=== PATIENT | male | born 1960 | race Caucasian/White ===

== ENCOUNTER 2020-01-27 18:25 | Inpatient (IN) ==
[2020-01-27 19:27] LABS: Immature Granulocytes % 0.4 % (0-4)
[2020-01-27 19:29] LABS: Basophils % 0.1 %; Hematocrit 44.5 % (37.5-50.1); Hemoglobin 14.1 g/dL (12.9-16.9); Immature Platelets 1.3 % (1.1-6.1); Lymphocytes # 0.6 K/mcL (0.6-4.6); Lymphocytes % 7.5 %; Mean Corpuscular HGB Conc 31.7 g/dL (31.6-35.5); Mean Corpuscular Hemoglobin 29.3 pg (28.0-33.3); Mean Corpuscular Volume 92.3 fL (83.0-100.0); Mean Platelet Volume 10.6 fL (9.4-12.4); Monocytes # 0.7 K/mcL (0.0-1.3); Neutrophils # 6.7 K/mcL (1.6-8.9); Platelet Count 147 K/mcL (140-400); Red Blood Count 4.82 M/mcL (4.19-5.50); Red Cell Distribution Width 14.9 % (11.5-14.5); White Blood Count 8.1 K/mcL (4.3-11.1)
[2020-01-27 20:00] LABS: Alanine Aminotransferase < 3 Units/L (7-52); Albumin 4.1 g/dL (3.5-5.7); Albumin/Globulin Ratio 1.5 (1.1-2.2); Alkaline Phosphatase 48 Units/L (34-104); Aspartate Amino Transferase 8 Units/L (13-39); BUN/Creatinine Ratio 14 (6-26); Bilirubin,Total 0.9 mg/dL (0.3-1.0); Blood Urea Nitrogen 19 mg/dL (8-23); Calcium 9.2 mg/dL (8.6-10.3); Carbon Dioxide 22 mEq/L (23-29); Chloride 104 mEq/L (98-107); Globulin 2.8 g/dL (2.4-3.5); Glucose 138 mg/dL (70-105); Osmolality,Calculated 288 (280-300); Sodium 137 mEq/L (136-145); Total Protein 6.9 g/dL (6.4-8.9); Troponin I < 0.03 ng/mL (< 0.04); eGFR For African Americans > 60 (> 60); eGFR For Non-African Americans 52 (> 60)
[2020-01-27 20:21] LABS: Bilirubin,Urine Negative (Negative); Blood,Urine Moderate (Negative); Clarity,Urine Turbid (Clear); Color,Urine Yellow (Yellow); Glucose,Urine (UA) Normal (Normal); Hyaline Casts,Urine Few per lpf (None Seen); Ketones,Urine 10 mg/dL (Negative); Leukocyte Esterase,Urine Large (Negative); Mucus,Urine Moderate per lpf (None-Few); Nitrite,Urine Negative (Negative); PH,Urine 6.5 pH Units (5.0-8.0); Protein,Urine 100 mg/dL (Neg-Trace); Specific Gravity,Urine 1.029 (1.010-1.025); Squamous Epithelial Cell,Urine Few per hpf (None-Few); WBC,Urine TNTC per hpf (0-3)
[2020-01-27] MEDS ORDERED: cefTRIAXone 1,000 MG in 0.9 % Sodium Chloride Mini Bag 100 ML IVPB ONE (21:32)
[2020-01-28] MEDS ORDERED: Naloxone 0.4 MG/ML INJ IVP PRN (00:14)
[2020-01-28] MEDS: 0.9 % Sodium Chloride 1,000 ML IVC SCH ×2 (01:30→10:30)
[2020-01-28] MEDS ORDERED: Acetaminophen IV 1,000 MG/100 ML BAG IVPB ONE ×2 (03:21→20:57)
[2020-01-28] MEDS: *HR* Heparin 5,000 UNIT/ML VIAL SQ SCH ×2 (06:20→17:33)
[2020-01-28] MEDS: cefTRIAXone 1,000 MG in Water for inj. (sterile) 10 ML IVP SCH (09:40)
[2020-01-28 10:28] LABS: Hematocrit 44.6 % (37.5-50.1); Hemoglobin 13.9 g/dL (12.9-16.9); Mean Corpuscular HGB Conc 31.2 g/dL (31.6-35.5); Mean Corpuscular Hemoglobin 28.5 pg (28.0-33.3); Mean Corpuscular Volume 91.4 fL (83.0-100.0); Mean Platelet Volume 9.3 fL (9.4-12.4); Platelet Count 113 K/mcL (140-400); Red Blood Count 4.88 M/mcL (4.19-5.50); Red Cell Distribution Width 15.2 % (11.5-14.5); White Blood Count 8.7 K/mcL (4.3-11.1)
[2020-01-28 10:38] LABS: BUN/Creatinine Ratio 16 (6-26); Blood Urea Nitrogen 19 mg/dL (8-23); Calcium 8.9 mg/dL (8.6-10.3); Carbon Dioxide 21 mEq/L (23-29); Chloride 103 mEq/L (98-107); Glucose 124 mg/dL (70-105); Magnesium 2.1 mg/dL (1.6-2.6); Osmolality,Calculated 282 (280-300); Phosphorous 2.4 mg/dL (2.7-4.5); Potassium 3.6 mEq/L (3.5-5.1); Sodium 134 mEq/L (136-145); eGFR For African Americans > 60 (> 60); eGFR For Non-African Americans > 60 (> 60)
[2020-01-29 05:23] LABS: Mean Platelet Volume 9.8 fL (9.4-12.4)
[2020-01-29 05:25] LABS: Basophils % 0.4 %; Eosinophils % 0.1 %; Hematocrit 41.3 % (37.5-50.1); Immature Granulocytes % 0.3 % (0-4); Immature Platelets 1.8 % (1.1-6.1); Lymphocytes # 0.9 K/mcL (0.6-4.6); Lymphocytes % 12.2 %; Mean Corpuscular HGB Conc 31.5 g/dL (31.6-35.5); Mean Corpuscular Hemoglobin 28.8 pg (28.0-33.3); Mean Corpuscular Volume 91.4 fL (83.0-100.0); Monocytes % 13.6 %; Platelet Count 132 K/mcL (140-400); Red Blood Count 4.52 M/mcL (4.19-5.50); Red Cell Distribution Width 15.1 % (11.5-14.5); Segmented Neutrophils % 73.4 %; White Blood Count 7.3 K/mcL (4.3-11.1)
[2020-01-29 05:26] LABS: Neutrophils # 5.4 K/mcL (1.6-8.9)
[2020-01-29] MEDS: *HR* Heparin 5,000 UNIT/ML VIAL SQ SCH ×2 (05:28→16:42)
[2020-01-29 05:44] LABS: BUN/Creatinine Ratio 21 (6-26); Blood Urea Nitrogen 22 mg/dL (8-23); Calcium 8.7 mg/dL (8.6-10.3); Carbon Dioxide 22 mEq/L (23-29); Chloride 107 mEq/L (98-107); Glucose 111 mg/dL (70-105); Osmolality,Calculated 290 (280-300); Potassium 3.6 mEq/L (3.5-5.1); Sodium 138 mEq/L (136-145); eGFR For African Americans > 60 (> 60); eGFR For Non-African Americans > 60 (> 60)
[2020-01-29] MEDS: cefTRIAXone 1,000 MG in Water for inj. (sterile) 10 ML IVP SCH (08:01)
[2020-01-29] MEDS ORDERED: Ketoconazole 2% CRM 15 GM TUBE TP PRN (08:22)
[2020-01-29] MEDS ORDERED: Bisacodyl 10 MG RECTAL SUPPOSITORY RC PRN (08:22)
[2020-01-29] MEDS: Carbidopa/Levodopa ER 50/200 TABLET PO SCH ×2 (09:39→20:15)
[2020-01-29] MEDS: Amantadine Oral Soln 50 MG/5 ML UDC PO SCH ×2 (09:39→20:15)
[2020-01-29] MEDS: Carbidopa/Levodopa 25/100 TABLET PO SCH ×4 (09:39→20:15)
[2020-01-29] MEDS: Cholecalciferol (D-3) 1,000 UNIT (25MCG) TABLET PO SCH (09:39)
[2020-01-29] MEDS: Sennosides 8.6 MG TABLET PO SCH (09:39)
[2020-01-29] MEDS ORDERED: Ringers Solution, Lactated 1,000 ML IVC SCH (17:00)
[2020-01-30] MEDS: *HR* Heparin 5,000 UNIT/ML VIAL SQ SCH ×2 (05:09→17:54)
[2020-01-30 05:26] LABS: Hemoglobin 12.8 g/dL (12.9-16.9); Immature Granulocytes % 0.3 % (0-4)
[2020-01-30 05:28] LABS: Basophils % 0.3 %; Eosinophils # 0.1 K/mcL (0.0-0.6); Eosinophils % 1.6 %; Hematocrit 40.8 % (37.5-50.1); Immature Platelets 2.1 % (1.1-6.1); Lymphocytes % 17.1 %; Mean Corpuscular HGB Conc 31.4 g/dL (31.6-35.5); Mean Corpuscular Volume 92.5 fL (83.0-100.0); Mean Platelet Volume 9.4 fL (9.4-12.4); Monocytes # 0.6 K/mcL (0.0-1.3); Platelet Count 145 K/mcL (140-400); Red Blood Count 4.41 M/mcL (4.19-5.50); Segmented Neutrophils % 70.7 %; White Blood Count 5.7 K/mcL (4.3-11.1)
[2020-01-30 05:46] LABS: BUN/Creatinine Ratio 17 (6-26); Blood Urea Nitrogen 20 mg/dL (8-23); Calcium 8.5 mg/dL (8.6-10.3); Carbon Dioxide 26 mEq/L (23-29); Chloride 107 mEq/L (98-107); Glucose 139 mg/dL (70-105); Osmolality,Calculated 295 (280-300); Phosphorous 2.3 mg/dL (2.7-4.5); Potassium 3.7 mEq/L (3.5-5.1); Sodium 140 mEq/L (136-145); eGFR For African Americans > 60 (> 60); eGFR For Non-African Americans > 60 (> 60)
[2020-01-30] MEDS: cefTRIAXone 1,000 MG in Water for inj. (sterile) 10 ML IVP SCH (09:00)
[2020-01-30] MEDS: Carbidopa/Levodopa ER 50/200 TABLET PO SCH ×2 (09:00→22:48)
[2020-01-30] MEDS: Sennosides 8.6 MG TABLET PO SCH (09:01)
[2020-01-30] MEDS: Carbidopa/Levodopa 25/100 TABLET PO SCH ×4 (09:01→22:48)
[2020-01-30] MEDS: Cholecalciferol (D-3) 1,000 UNIT (25MCG) TABLET PO SCH (09:01)
[2020-01-30] MEDS: Amantadine Oral Soln 50 MG/5 ML UDC PO SCH ×2 (09:01→22:48)
[2020-01-30] MEDS: polyethylene glycoL 3350 17 GM POWD.PACK PO SCH (09:12)
[2020-01-30] MEDS ORDERED: Potassium Phosphate 44 MEQ in 0.9 % Sodium Chloride 250 ML IVPB ONE (12:53)
[2020-01-31 00:51] LABS: Basophils % 0.2 %; Eosinophils # 0.1 K/mcL (0.0-0.6); Eosinophils % 1.6 %; Hematocrit 40.5 % (37.5-50.1); Hemoglobin 12.8 g/dL (12.9-16.9); Immature Granulocytes % 0.3 % (0-4); Lymphocytes # 1.1 K/mcL (0.6-4.6); Lymphocytes % 18.3 %; Mean Corpuscular HGB Conc 31.6 g/dL (31.6-35.5); Mean Corpuscular Hemoglobin 28.7 pg (28.0-33.3); Mean Corpuscular Volume 90.8 fL (83.0-100.0); Mean Platelet Volume 10.1 fL (9.4-12.4); Monocytes # 0.4 K/mcL (0.0-1.3); Monocytes % 7.5 %; Neutrophils # 4.2 K/mcL (1.6-8.9); Platelet Count 125 K/mcL (140-400); Red Blood Count 4.46 M/mcL (4.19-5.50); Segmented Neutrophils % 72.1 %; White Blood Count 5.8 K/mcL (4.3-11.1)
[2020-01-31 01:11] LABS: Magnesium 2.1 mg/dL (1.6-2.6)
[2020-01-31 01:14] LABS: BUN/Creatinine Ratio 22 (6-26); Blood Urea Nitrogen 22 mg/dL (8-23); Carbon Dioxide 23 mEq/L (23-29); Chloride 108 mEq/L (98-107); Glucose 155 mg/dL (70-105); Osmolality,Calculated 296 (280-300); Potassium 3.8 mEq/L (3.5-5.1); Sodium 140 mEq/L (136-145); eGFR For African Americans > 60 (> 60); eGFR For Non-African Americans > 60 (> 60)
[2020-01-31] MEDS ORDERED: *HR* Metoprolol 5 MG/5 ML VIAL IVP ONE (03:50)
[2020-01-31] MEDS ORDERED: Aspirin 81 MG TAB.CHEW PO SCH (03:50)
[2020-01-31] MEDS: *HR* Heparin 5,000 UNIT/ML VIAL SQ SCH (06:24)
[2020-01-31] MEDS ORDERED: Ketoconazole Shampoo 120 ML BOTTLE TP SCH (08:22)
[2020-01-31] MEDS: Carbidopa/Levodopa ER 50/200 TABLET PO SCH ×2 (10:04→21:40)
[2020-01-31] MEDS: Sennosides 8.6 MG TABLET PO SCH (10:04)
[2020-01-31] MEDS: Amantadine Oral Soln 50 MG/5 ML UDC PO SCH ×2 (10:04→21:40)
[2020-01-31] MEDS: Cholecalciferol (D-3) 1,000 UNIT (25MCG) TABLET PO SCH (10:04)
[2020-01-31] MEDS: cefTRIAXone 1,000 MG in Water for inj. (sterile) 10 ML IVP SCH (10:05)
[2020-01-31] MEDS: Carbidopa/Levodopa 25/100 TABLET PO SCH ×4 (10:05→21:40)
[2020-01-31] MEDS: Apixaban 5 MG TABLET PO SCH ×2 (16:13→21:40)
[2020-01-31] MEDS: Metoprolol XL (24 HR) Succ 25 MG TAB.ER.24H PO SCH (16:17)
[2020-02-01 01:17] LABS: Basophils % 0.3 %; Eosinophils # 0.3 K/mcL (0.0-0.6); Eosinophils % 4.3 %; Hematocrit 42.9 % (37.5-50.1); Hemoglobin 13.3 g/dL (12.9-16.9); Immature Granulocytes % 0.5 % (0-4); Lymphocytes # 1.4 K/mcL (0.6-4.6); Lymphocytes % 23.2 %; Mean Corpuscular Hemoglobin 28.6 pg (28.0-33.3); Mean Corpuscular Volume 92.3 fL (83.0-100.0); Mean Platelet Volume 9.6 fL (9.4-12.4); Monocytes # 0.5 K/mcL (0.0-1.3); Monocytes % 8.6 %; Neutrophils # 3.7 K/mcL (1.6-8.9); Platelet Count 133 K/mcL (140-400); Red Blood Count 4.65 M/mcL (4.19-5.50); Red Cell Distribution Width 14.9 % (11.5-14.5); Segmented Neutrophils % 63.1 %; White Blood Count 5.8 K/mcL (4.3-11.1)
[2020-02-01 01:41] LABS: BUN/Creatinine Ratio 19 (6-26); Blood Urea Nitrogen 17 mg/dL (8-23); Calcium 9.1 mg/dL (8.6-10.3); Carbon Dioxide 26 mEq/L (23-29); Chloride 107 mEq/L (98-107); Glucose 102 mg/dL (70-105); Osmolality,Calculated 298 (280-300); Potassium 3.8 mEq/L (3.5-5.1); Sodium 143 mEq/L (136-145); eGFR For African Americans > 60 (> 60); eGFR For Non-African Americans > 60 (> 60)
[2020-02-01] MEDS: Cholecalciferol (D-3) 1,000 UNIT (25MCG) TABLET PO SCH (09:53)
[2020-02-01] MEDS: Apixaban 5 MG TABLET PO SCH ×2 (09:53→21:12)
[2020-02-01] MEDS: Carbidopa/Levodopa ER 50/200 TABLET PO SCH ×2 (09:53→21:13)
[2020-02-01] MEDS: Sennosides 8.6 MG TABLET PO SCH (09:54)
[2020-02-01] MEDS: Carbidopa/Levodopa 25/100 TABLET PO SCH ×4 (09:54→21:13)
[2020-02-01] MEDS: Metoprolol XL (24 HR) Succ 25 MG TAB.ER.24H PO SCH (09:54)
[2020-02-01] MEDS: cefTRIAXone 1,000 MG in Water for inj. (sterile) 10 ML IVP SCH (09:55)
[2020-02-01] MEDS: polyethylene glycoL 3350 17 GM POWD.PACK PO SCH (09:55)
[2020-02-01] MEDS: Amantadine Oral Soln 50 MG/5 ML UDC PO SCH ×2 (09:56→21:13)
[2020-02-02 05:31] LABS: Basophils % 0.5 %; Eosinophils # 0.4 K/mcL (0.0-0.6); Eosinophils % 6.7 %; Hemoglobin 12.8 g/dL (12.9-16.9); Immature Granulocytes % 0.7 % (0-4); Lymphocytes # 1.3 K/mcL (0.6-4.6); Lymphocytes % 22.1 %; Mean Corpuscular HGB Conc 31.2 g/dL (31.6-35.5); Mean Corpuscular Hemoglobin 28.6 pg (28.0-33.3); Mean Corpuscular Volume 91.7 fL (83.0-100.0); Mean Platelet Volume 9.9 fL (9.4-12.4); Monocytes # 0.5 K/mcL (0.0-1.3); Monocytes % 7.9 %; Neutrophils # 3.7 K/mcL (1.6-8.9); Platelet Count 147 K/mcL (140-400); Red Blood Count 4.47 M/mcL (4.19-5.50); Red Cell Distribution Width 14.7 % (11.5-14.5); Segmented Neutrophils % 62.1 %; White Blood Count 5.9 K/mcL (4.3-11.1)
[2020-02-02 05:51] LABS: BUN/Creatinine Ratio 17 (6-26); Blood Urea Nitrogen 17 mg/dL (8-23); Calcium 9.1 mg/dL (8.6-10.3); Carbon Dioxide 26 mEq/L (23-29); Chloride 107 mEq/L (98-107); Glucose 120 mg/dL (70-105); Magnesium 2.1 mg/dL (1.6-2.6); Osmolality,Calculated 291 (280-300); Sodium 139 mEq/L (136-145); eGFR For African Americans > 60 (> 60); eGFR For Non-African Americans > 60 (> 60)
[2020-02-02] MEDS: Sennosides 8.6 MG TABLET PO SCH (10:35)
[2020-02-02] MEDS: Metoprolol XL (24 HR) Succ 25 MG TAB.ER.24H PO SCH (10:36)
[2020-02-02] MEDS: Cholecalciferol (D-3) 1,000 UNIT (25MCG) TABLET PO SCH (10:36)
[2020-02-02] MEDS: cefTRIAXone 1,000 MG in Water for inj. (sterile) 10 ML IVP SCH ×2 (10:36→11:12)
[2020-02-02] MEDS: Apixaban 5 MG TABLET PO SCH (10:36)
[2020-02-02] MEDS: Carbidopa/Levodopa 25/100 TABLET PO SCH (10:36)
[2020-02-02] MEDS: Carbidopa/Levodopa ER 50/200 TABLET PO SCH (10:36)
[2020-02-02] MEDS: Amantadine Oral Soln 50 MG/5 ML UDC PO SCH (10:37)
[2020-02-02 10:55] VITALS: BP 140/93
== END 2020-02-02 13:16 | DRG 872 ==
LOC: EMEROOARM 18:25 → 3BNU 18:25 → SUATTDRO 22:17 → 3BNU 22:40 → SUATTDRO 01-28 19:29
PROVIDERS: ADMIT Internal Medicine; ATTEND Pharmacist

== ENCOUNTER 2020-05-31 04:54 | Observation (INO) ==
[2020-05-31 06:12] LABS: INR 1.1; Prothrombin Time 12.7 Seconds (9.4-12.1)
[2020-05-31] MEDS ORDERED: *HR* FentaNYL (PF) 100 MCG/2 ML VIAL IVP ONE (06:22)
[2020-05-31 06:36] LABS: Basophils % 0.4 %; Eosinophils # 0.4 K/mcL (0.0-0.6); Eosinophils % 7.1 %; Hematocrit 44.8 % (37.5-50.1); Hemoglobin 14.4 g/dL (12.9-16.9); Immature Granulocytes % 0.2 % (0-4); Lymphocytes # 1.4 K/mcL (0.6-4.6); Lymphocytes % 25.6 %; Mean Corpuscular HGB Conc 32.1 g/dL (31.6-35.5); Mean Corpuscular Volume 93.3 fL (83.0-100.0); Mean Platelet Volume 10.9 fL (9.4-12.4); Monocytes # 0.5 K/mcL (0.0-1.3); Monocytes % 8.9 %; Neutrophils # 3.3 K/mcL (1.6-8.9); Platelet Count 108 K/mcL (140-400); Segmented Neutrophils % 57.8 %; White Blood Count 5.6 K/mcL (4.3-11.1)
[2020-05-31 07:19] LABS: Alanine Aminotransferase 4 Units/L (7-52); Albumin 4.3 g/dL (3.5-5.7); Albumin/Globulin Ratio 1.8 (1.1-2.2); Alkaline Phosphatase 42 Units/L (34-104); Aspartate Amino Transferase 11 Units/L (13-39); BUN/Creatinine Ratio 16 (6-26); Bilirubin,Total 0.5 mg/dL (0.3-1.0); Blood Urea Nitrogen 17 mg/dL (8-23); Calcium 9.5 mg/dL (8.6-10.3); Carbon Dioxide 26 mEq/L (23-29); Chloride 104 mEq/L (98-107); Creatine Kinase 87 Units/L (30-223); Globulin 2.4 g/dL (2.4-3.5); Glucose 99 mg/dL (70-105); Osmolality,Calculated 288 (280-300); Potassium 3.8 mEq/L (3.5-5.1); Sodium 138 mEq/L (136-145); Total Protein 6.7 g/dL (6.4-8.9); eGFR For African Americans > 60 (> 60); eGFR For Non-African Americans > 60 (> 60)
[2020-05-31 07:20] LABS: Troponin I < 0.03 ng/mL (< 0.04)
[2020-05-31] MEDS ORDERED: *HR* HYDROcodone/Acet 5/325 mg TABLET PO ONE (07:51)
[2020-05-31] MEDS ORDERED: Naloxone 0.4 MG/ML INJ IVP PRN (10:28)
[2020-05-31] MEDS ORDERED: Acetaminophen 325 MG TABLET PO PRN (10:29)
[2020-05-31] MEDS ORDERED: Ketoconazole 2% CRM 15 GM TUBE TP PRN (10:29)
[2020-05-31] MEDS ORDERED: MENTHOL TP PRN (10:29)
[2020-05-31] MEDS ORDERED: Bisacodyl 10 MG RECTAL SUPPOSITORY RC PRN (10:29)
[2020-05-31] MEDS ORDERED: CAMPHOR TP PRN (10:29)
[2020-05-31] MEDS: 0.9 % Sodium Chloride 1,000 ML IVC SCH ×2 (12:56→21:34)
[2020-05-31] MEDS: Metoprolol XL (24 HR) Succ 25 MG TAB.ER.24H PO SCH (12:56)
[2020-05-31] MEDS: Carbidopa/Levodopa 25/100 TABLET PO SCH ×3 (12:56→21:33)
[2020-05-31] MEDS ORDERED: *HR* HYDROcodone/Acet 5/325 mg TABLET PO PRN (14:28)
[2020-05-31] MEDS: Amantadine Oral Soln 50 MG/5 ML UDC PO SCH (21:32)
[2020-05-31] MEDS: Apixaban 5 MG TABLET PO SCH (21:33)
[2020-05-31] MEDS: Carbidopa/Levodopa ER 50/200 TABLET PO SCH (21:33)
[2020-06-01] MEDS: Carbidopa/Levodopa ER 50/200 TABLET PO SCH (06:32)
[2020-06-01] MEDS: Carbidopa/Levodopa 25/100 TABLET PO SCH (08:57)
[2020-06-01] MEDS: Apixaban 5 MG TABLET PO SCH (08:57)
[2020-06-01] MEDS: Metoprolol XL (24 HR) Succ 25 MG TAB.ER.24H PO SCH (08:57)
[2020-06-01] MEDS ORDERED: polyethylene glycoL 3350 17 GM POWD.PACK PO SCH (09:00)
[2020-06-01] MEDS ORDERED: Metoprolol XL (24 HR) Succ 25 MG TAB.ER.24H PO SCH (09:00)
[2020-06-01] MEDS ORDERED: Sennosides 8.6 MG TABLET PO SCH (09:00)
[2020-06-01] MEDS: Amantadine Oral Soln 50 MG/5 ML UDC PO SCH (09:04)
[2020-06-01 10:42] VITALS: BP 106/70
== END 2020-06-01 15:02 ==
LOC: 3BNU 04:54 → EMEROOARM 04:54 → 3BNU 11:20
PROVIDERS: ADMIT Internal Medicine; ATTEND Internal Medicine

== ENCOUNTER 2020-10-22 07:42 | Observation (INO) ==
[2020-10-22 08:07] LABS: Basophils % 0.6 %; Immature Granulocytes % 0.4 % (0-4); Red Blood Count 5.07 M/mcL (4.19-5.50)
[2020-10-22 08:08] LABS: Eosinophils # 0.4 K/mcL (0.0-0.6); Eosinophils % 7.4 %; Hematocrit 46.7 % (37.5-50.1); Hemoglobin 15.4 g/dL (12.9-16.9); Lymphocytes # 1.5 K/mcL (0.6-4.6); Lymphocytes % 28.4 %; Mean Corpuscular Hemoglobin 30.4 pg (28.0-33.3); Mean Corpuscular Volume 92.1 fL (83.0-100.0); Mean Platelet Volume 9.2 fL (9.4-12.4); Monocytes # 0.4 K/mcL (0.0-1.3); Monocytes % 8.2 %; Platelet Count 179 K/mcL (140-400); White Blood Count 5.4 K/mcL (4.3-11.1)
[2020-10-22 08:26] LABS: BUN/Creatinine Ratio 16 (6-26); Blood Urea Nitrogen 18 mg/dL (8-23); Calcium 9.6 mg/dL (8.6-10.3); Carbon Dioxide 27 mEq/L (23-29); Chloride 104 mEq/L (98-107); Glucose 156 mg/dL (70-105); Osmolality,Calculated 289 (280-300); Potassium 4.3 mEq/L (3.5-5.1); Sodium 137 mEq/L (136-145); eGFR For African Americans > 60 (> 60); eGFR For Non-African Americans > 60 (> 60)
[2020-10-22 08:27] LABS: Troponin I < 0.03 ng/mL (< 0.04)
[2020-10-22 08:55] LABS: Bilirubin,Urine Negative (Negative); Blood,Urine Negative (Negative); Clarity,Urine Clear (Clear); Color,Urine Light-Yellow (Yellow); Glucose,Urine (UA) Normal (Normal); Ketones,Urine Negative (Negative); Leukocyte Esterase,Urine Negative (Negative); Nitrite,Urine Negative (Negative); Protein,Urine Negative (Neg-Trace); Specific Gravity,Urine 1.021 (1.010-1.025); Urobilinogen,Urine Normal (Normal)
[2020-10-22] MEDS ORDERED: 0.9 % Sodium Chloride 500 ML IVC ONE (09:18)
[2020-10-22] MEDS ORDERED: Naloxone 0.4 MG/ML INJ IVP PRN (09:34)
[2020-10-22] MEDS ORDERED: 0.9 % Sodium Chloride 1,000 ML IVC SCH (11:30)
[2020-10-23] MEDS ORDERED: *HR* HYDROcodone/Acet 5/325 mg TABLET PO PRN (08:55)
[2020-10-23] MEDS ORDERED: Carbidopa/Levodopa 25/100 TABLET PO SCH (09:00)
[2020-10-23] MEDS ORDERED: Amantadine Oral Soln 50 MG/5 ML UDC PO SCH (09:00)
[2020-10-23] MEDS ORDERED: Carbidopa/Levodopa ER 50/200 TABLET PO SCH (09:00)
[2020-10-23] MEDS ORDERED: Apixaban 5 MG TABLET PO SCH (09:00)
[2020-10-23] MEDS ORDERED: Metoprolol XL (24 HR) Succ 25 MG TAB.ER.24H PO SCH (09:00)
[2020-10-23] MEDS ORDERED: Sennosides 8.6 MG TABLET PO SCH (09:00)
[2020-10-23 10:26] VITALS: BP 101/65
[2020-10-23 12:35] LABS: Adenovirus Not Detected (Not Detect); Bordetella Pertussis Not Detected (Not Detect); Chlamydophila pneumoniae Not Detected (Not Detect); Coronavirus 229E Not Detected (Not Detect); Coronavirus HKU1 Not Detected (Not Detect); Coronavirus NL63 Not Detected (Not Detect); Coronavirus OC43 Not Detected (Not Detect); Human Metapneumovirus Not Detected (Not Detect); Human Rhinovirus/Enterovirus Not Detected (Not Detect); Influenza A Subtype 2009 H1 Not Detected (Not Detect); Influenza B Not Detected (Not Detect); Mycoplasma pneumoniae Not Detected (Not Detect); Parainfluenza Virus 1 Not Detected (Not Detect); Parainfluenza Virus 2 Not Detected (Not Detect); Parainfluenza Virus 3 Not Detected (Not Detect); Parainfluenza Virus 4 Not Detected (Not Detect); Respiratory Syncytial Virus Not Detected (Not Detect); SARS-CoV-2 Not Detected (Not Detect)
[2020-10-23] MEDS ORDERED: Melatonin 3 MG TABLET PO SCH (21:00)
== END 2020-10-23 13:33 ==
LOC: EMEROOARM 07:42 → 3BNU 07:42 → SUATTDRO 09:57 → 3BNU 11:01
PROVIDERS: ADMIT Internal Medicine; ATTEND Internal Medicine

== ENCOUNTER 2020-11-11 09:55 | Observation (INO) ==
[2020-11-11] MEDS ORDERED: Ipratropium/Albuterol Neb 3 ML IH ONE (10:39)
[2020-11-11 11:08] LABS: Basophils % 0.6 %; Eosinophils # 0.3 K/mcL (0.0-0.6); Eosinophils % 9.3 %; Hematocrit 42.8 % (37.5-50.1); Hemoglobin 14.1 g/dL (12.9-16.9); Immature Granulocytes % 0.3 % (0-4); Lymphocytes # 0.7 K/mcL (0.6-4.6); Mean Corpuscular HGB Conc 32.9 g/dL (31.6-35.5); Mean Corpuscular Hemoglobin 30.5 pg (28.0-33.3); Mean Corpuscular Volume 92.6 fL (83.0-100.0); Mean Platelet Volume 8.7 fL (9.4-12.4); Monocytes # 0.2 K/mcL (0.0-1.3); Monocytes % 7.3 %; Neutrophils # 1.9 K/mcL (1.6-8.9); Platelet Count 171 K/mcL (140-400); Red Blood Count 4.62 M/mcL (4.19-5.50); Red Cell Distribution Width 13.8 % (11.5-14.5); Segmented Neutrophils % 59.5 %; White Blood Count 3.1 K/mcL (4.3-11.1)
[2020-11-11 11:30] LABS: BUN/Creatinine Ratio 19 (6-26); Blood Urea Nitrogen 17 mg/dL (8-23); Calcium 9.5 mg/dL (8.6-10.3); Carbon Dioxide 23 mEq/L (23-29); Chloride 108 mEq/L (98-107); Glucose 107 mg/dL (70-105); Osmolality,Calculated 290 (280-300); Potassium 3.8 mEq/L (3.5-5.1); Sodium 139 mEq/L (136-145); Troponin I < 0.03 ng/mL (< 0.04); eGFR For African Americans > 60 (> 60); eGFR For Non-African Americans > 60 (> 60)
[2020-11-11 12:11] LABS: Adenovirus Not Detected (Not Detect); Bordetella Pertussis Not Detected (Not Detect); Chlamydophila pneumoniae Not Detected (Not Detect); Coronavirus 229E Not Detected (Not Detect); Coronavirus HKU1 Not Detected (Not Detect); Coronavirus NL63 Not Detected (Not Detect); Coronavirus OC43 Not Detected (Not Detect); Human Metapneumovirus Not Detected (Not Detect); Human Rhinovirus/Enterovirus DETECTED (Not Detect); Influenza A Subtype 2009 H1 Not Detected (Not Detect); Influenza B Not Detected (Not Detect); Mycoplasma pneumoniae Not Detected (Not Detect); Parainfluenza Virus 1 Not Detected (Not Detect); Parainfluenza Virus 2 Not Detected (Not Detect); Parainfluenza Virus 3 Not Detected (Not Detect); Parainfluenza Virus 4 Not Detected (Not Detect); Respiratory Syncytial Virus Not Detected (Not Detect); SARS-CoV-2 Not Detected (Not Detect)
[2020-11-11] MEDS ORDERED: DilTIAZem 50 MG/50 ML IV.SOLN IVC SCH (12:30)
[2020-11-11] MEDS ORDERED: 0.9 % Sodium Chloride 1,000 ML ONE (13:01)
[2020-11-11] MEDS ORDERED: 0.9 % Sodium Chloride 1,000 ML IVC ONE (13:01)
[2020-11-11] MEDS ORDERED: Naloxone 0.4 MG/ML INJ IVP PRN (17:02)
[2020-11-11] MEDS: predniSONE 20 MG TABLET PO SCH (18:02)
[2020-11-11] MEDS: Levalbuterol Neb 0.63 MG/3 ML IH SCH (18:57)
[2020-11-12] MEDS: Levalbuterol Neb 0.63 MG/3 ML IH SCH ×6 (00:20→23:14)
[2020-11-12 07:46] LABS: BUN/Creatinine Ratio 17 (6-26); Blood Urea Nitrogen 15 mg/dL (8-23); Calcium 9.5 mg/dL (8.6-10.3); Carbon Dioxide 21 mEq/L (23-29); Chloride 109 mEq/L (98-107); Glucose 116 mg/dL (70-105); Osmolality,Calculated 292 (280-300); Potassium 3.8 mEq/L (3.5-5.1); Sodium 140 mEq/L (136-145); eGFR For African Americans > 60 (> 60); eGFR For Non-African Americans > 60 (> 60)
[2020-11-12] MEDS: predniSONE 20 MG TABLET PO SCH (09:38)
[2020-11-12] MEDS: Metoprolol XL (24 HR) Succ 25 MG TAB.ER.24H PO SCH (09:38)
[2020-11-12] MEDS ORDERED: Bisacodyl 10 MG RECTAL SUPPOSITORY RC PRN (13:48)
[2020-11-12] MEDS ORDERED: Artificial Tears SOLN 15 ML BOTTLE BOTH EYES PRN (14:05)
[2020-11-12] MEDS: Amoxicillin/Clavulanate 500 MG TABLET PO SCH ×2 (14:22→21:36)
[2020-11-12] MEDS: Carbidopa/Levodopa 25/100 TABLET PO SCH ×2 (17:13→21:37)
[2020-11-12] MEDS ORDERED: *HR* Enoxaparin 40 MG/0.4 ML SYRINGE SQ SCH (21:00)
[2020-11-12] MEDS ORDERED: Melatonin 3 MG TABLET PO SCH (21:00)
[2020-11-12] MEDS: Amantadine Oral Soln 50 MG/5 ML UDC PO SCH (21:37)
[2020-11-12] MEDS: Carbidopa/Levodopa ER 50/200 TABLET PO SCH (21:38)
[2020-11-13] MEDS: Levalbuterol Neb 0.63 MG/3 ML IH SCH ×2 (03:37→07:36)
[2020-11-13] MEDS: Amoxicillin/Clavulanate 500 MG TABLET PO SCH (05:17)
[2020-11-13] MEDS ORDERED: polyethylene glycoL 3350 17 GM POWD.PACK PO SCH (09:00)
[2020-11-13] MEDS ORDERED: Cholecalciferol (D-3) 1,000 UNIT (25MCG) TABLET PO SCH (09:00)
[2020-11-13] MEDS ORDERED: Sennosides 8.6 MG TABLET PO SCH (09:00)
[2020-11-13] MEDS ORDERED: Metoprolol XL (24 HR) Succ 25 MG TAB.ER.24H PO ONE (09:30)
[2020-11-13] MEDS: Carbidopa/Levodopa ER 50/200 TABLET PO SCH (09:52)
[2020-11-13] MEDS: Carbidopa/Levodopa 25/100 TABLET PO SCH ×2 (09:52→13:24)
[2020-11-13] MEDS: predniSONE 20 MG TABLET PO SCH (09:52)
[2020-11-13] MEDS: Metoprolol XL (24 HR) Succ 25 MG TAB.ER.24H PO SCH (09:53)
[2020-11-13] MEDS: Amantadine Oral Soln 50 MG/5 ML UDC PO SCH (10:59)
[2020-11-13 11:54] VITALS: BP 131/98
[2020-11-14] MEDS ORDERED: Metoprolol XL (24 HR) Succ 50 MG TAB.ER.24H PO SCH (09:00)
== END 2020-11-13 14:26 ==
LOC: EMEROOARM 09:55 → 2NENU 09:55 → SUATTDRO 15:02 → 2NENU 15:39
PROVIDERS: ADMIT General Practice; ATTEND Student in an Organized Health Care Education/Training Program